=== PATIENT | male | born 1955 | race Caucasian/White ===

== ENCOUNTER → 2021-03-31 | Day surgery (SDC) | payer BC ==
[2021-03-30 08:41] LABS: BASOPHILS % 0.4 % (0.0-1.0); EOSINOPHILS # (AUTO) 0.2 (0.0-0.4); EOSINOPHILS % 3.2 % (0.0-6.0); HEMATOCRIT 42.4 % (38.2-49.6); HEMOGLOBIN 13.2 g/dL (14.0-18.0); LYMPHOCYTES # (AUTO) 1.8 (1.0-3.2); MEAN CORPUSCULAR HEMOGLOBIN 27.9 pg (28-32); MEAN CORPUSCULAR HGB CONC 31.1 g/dL (31-35); MEAN CORPUSCULAR VOLUME 89.6 fL (81-99); MONOCYTES # (AUTO) 0.5 (0.2-0.8); MONOCYTES % 7.7 % (4.4-11.3); NEUTROPHILS # (AUTO) 4.2 (2.1-6.9); NEUTROPHILS % 62.3 % (38.7-80.0); PLATELET COUNT 208 x10e3/uL (140-360); RED BLOOD COUNT 4.73 x10e6/uL (4.3-5.7); RED CELL DISTRIBUTION WIDTH 13.4 % (11.7-14.4)
[2021-03-30 15:01] LABS: ANION GAP 15.9 mmol/L (8-16); CALCIUM 9.7 mg/dL (8.4-10.2); CREATININE, SERUM 0.92 mg/dL (0.72-1.25); POTASSIUM 3.9 mmol/L (3.5-5.1)
[~2021-03-31] MED LIST: ACETAMINOPHEN/CODEINE 300MG - 30MG TAB ONE; ASPIRIN325 MG PO; ATENOLOL PO; BETAMETHASONE DISODIUM PHOS 6 MG/ML VIAL ONE; BETAPROSTATE PO; BUPIVACAINE HCL 0.5% INJ 30 ML VIAL INJ ONE; CITRUCEL500 MG PO; CRESTOR10 MG PO; DULCOLAX5 MG PO; FENTANYL CITRATE/PF 100MCG/2 ML INJ ONE; FIBERCON625 MG PO; LIDOCAINE HCL 1% LOCAL INJ 20 ML VIAL ONE; LOSARTAN-HCTZ1 EACH PO; MULTIVITAMIN PO; MUPIROCIN 2% OINT 22 GM TUBE ONE; PROBIOTIC & AC1 EACH PO; SODIUM CHLORIDE 0.9% 50ML 100 ML ONE; SUBOXONE 4 MG-1 EACH SL; TOBRADEX ST EYE5 ML OT; TYLENOL PM PO; VITAMIN C500 MG PO; VITAMIN D-40400 UNIT PO; Z QUIL PO
[2021-03-31 10:00] VITALS: BP 139/86
== END | disposition home or self-care (01) ==
LOC: OR 05:50
PROVIDERS: ATTEND Podiatrist Foot Surgery
DX: M20.12 Hallux valgus (acquired), left foot (principal); M20.42 Other hammer toe(s) (acquired), left foot; M21.622 Bunionette of left foot; M20.5X2 Other deformities of toe(s) (acquired), left foot; I10 Essential (primary) hypertension; I48.91 Unspecified atrial fibrillation; Z88.6 Allergy status to analgesic agent; Z01.810 Encounter for preprocedural cardiovascular examination; Z01.812 Encounter for preprocedural laboratory examination; Z01.818 Encounter for other preprocedural examination; Z20.822 Contact with and (suspected) exposure to COVID-19
CPT/HCPCS: 28110; 28285 ×2; 28296; 36415; 71046; 73620; 80048; 85025; 88305; 88311; 93005; C1713 ×2; J0690; J0720; J2001; J3010; U0002

== ENCOUNTER 2021-05-05 09:00 | Observation (INO) | payer BC ==
[2021-05-01 08:58] LABS: BASOPHILS % 0.5 % (0.0-1.0); EOSINOPHILS # (AUTO) 0.2 (0.0-0.4); HEMATOCRIT 40.7 % (38.2-49.6); HEMOGLOBIN 12.8 g/dL (14.0-18.0); LYMPHOCYTES # (AUTO) 1.9 (1.0-3.2); LYMPHOCYTES % 30.6 % (18.0-39.1); MEAN CORPUSCULAR HEMOGLOBIN 28.3 pg (28-32); MEAN CORPUSCULAR HGB CONC 31.4 g/dL (31-35); MONOCYTES # (AUTO) 0.6 (0.2-0.8); MONOCYTES % 9.6 % (4.4-11.3); NEUTROPHILS # (AUTO) 3.3 (2.1-6.9); NEUTROPHILS % 54.8 % (38.7-80.0); PLATELET COUNT 193 x10e3/uL (140-360); RED BLOOD COUNT 4.52 x10e6/uL (4.3-5.7); RED CELL DISTRIBUTION WIDTH 13.3 % (11.7-14.4)
[2021-05-01 09:19] LABS: ANION GAP 16.9 mmol/L (8-16); CALCIUM 9.2 mg/dL (8.4-10.2); CREATININE, SERUM 0.85 mg/dL (0.72-1.25); POTASSIUM 3.9 mmol/L (3.5-5.1)
[~2021-05-05] VITALS: Ht 185.4 cm; Wt 108.4 kg
[~2021-05-05 09:00] MED LIST changes: -ACETAMINOPHEN/CODEINE 300MG - 30MG TAB ONE; -BETAMETHASONE DISODIUM PHOS 6 MG/ML VIAL ONE; -BUPIVACAINE HCL 0.5% INJ 30 ML VIAL INJ ONE; +CELECOXIB 200 MG CAP ONE; +DEXAMETHASONE SOD PHOS 10 MG/1 ML VIAL ONE; -FENTANYL CITRATE/PF 100MCG/2 ML INJ ONE; +GABAPENTIN 300 MG CAP ONE; -LIDOCAINE HCL 1% LOCAL INJ 20 ML VIAL ONE; -MUPIROCIN 2% OINT 22 GM TUBE ONE; +ROPIVACAINE 246.25 MG, EPINEPHRINE HCL 1:1000 1ML 0.5 MG, CLONIDINE HCL 0.08 MG, KETORO... INJ ONE; +SODIUM CHLORIDE 0.9% 500ML 500 ML ONE; +TRANEXAMIC ACID 1,000 MG/10 ML ML ONE; +Vancomycin IV 1,000 MG ONE
[2021-05-05] MEDS ORDERED: DIPHENHYDRAMINE HCL INJ 50 MG/ML VIAL IV PRN (10:15)
[2021-05-05] MEDS ORDERED: SODIUM CHLORIDE 0.9% 1000ML 1,000 ML IV SCH (10:15)
[2021-05-05] MEDS ORDERED: ONDANSETRON HCL INJ 2MG/ML 2ML 2 MG/ML VIAL IV PRN (10:15)
[2021-05-05] MEDS ORDERED: HYDROCODONE/APAP 5MG-325MG TAB PO PRN (10:15)
[2021-05-05] MEDS ORDERED: ZOLPIDEM TARTRATE 5 MG TAB PO PRN (10:15)
[2021-05-05] MEDS ORDERED: ACETAMINOPHEN 650 MG SUPP PR PRN (10:15)
[2021-05-05] MEDS ORDERED: DOCUSATE SODIUM 100 MG CAP PO PRN (10:15)
[2021-05-05] MEDS ORDERED: KETOROLAC TROMETHAMINE 30 MG/ML VIAL IV PRN (10:15)
[2021-05-05] MEDS ORDERED: HYDROCODONE/APAP 7.5MG-325MG 1 EA TAB PO PRN (10:15)
[2021-05-05] MEDS ORDERED: FENTANYL CITRATE/PF 100MCG/2 ML INJ ONE (10:38)
[2021-05-05] MEDS ORDERED: HYDROMORPHONE 1MG/1ML INJ ONE ×2 (10:46→10:59)
[2021-05-05] MEDS ORDERED: ONDANSETRON HCL INJ 2MG/ML 2ML 2 MG/ML VIAL ONE ×2 (10:50→14:00)
[2021-05-05] MEDS ORDERED: MEPERIDINE HCL INJ 25 MG/ML VIAL ONE (11:03)
[2021-05-05 11:45] VITALS: BP 125/67
[2021-05-05 11:52] VITALS: BP 124/78
[2021-05-05] MEDS ORDERED: LIDOCAINE 2%/ EPINEPHRINE 20ML MDV ONE (13:32)
[2021-05-05] MEDS ORDERED: ROPIVACAINE 0.5% 5 MG/ML 30 ML SDV ONE (13:32)
[2021-05-05] MEDS ORDERED: LIDOCAINE HCL 2% LOCAL INJ 5 ML SDV VIAL INJ ONE (14:00)
[2021-05-05] MEDS ORDERED: POVIDONE IODINE 0.05% 0.05 % ML PO ONE (14:00)
[2021-05-05] MEDS ORDERED: KETOROLAC TROMETHAMINE 30 MG/ML VIAL ONE (14:00)
[2021-05-05] MEDS ORDERED: PROPOFOL IV EMULSION 10 MG/ML 20 ML VIAL ONE (14:00)
[2021-05-05] MEDS ORDERED: SEVOFLURANE INHAL SOLN 250 ML PEN BTL ONE (14:00)
[2021-05-05 15:37] VITALS: BP 110/72
[2021-05-05] MEDS ORDERED: Cefazolin 1 GM in SODIUM CHLORIDE 0.9% 50ML 50 ML IV SCH (16:00)
[2021-05-05] MEDS ORDERED: ASPIRIN 325 MG TAB PO SCH (17:00)
[2021-05-05] MEDS ORDERED: CELECOXIB 200 MG CAP PO SCH (17:00)
[2021-05-06] MEDS ORDERED: ACETAMINOPHEN 1000 MG/100 ML IV PRN (10:15)
== END 2021-05-05 18:23 | disposition home or self-care (01) ==
LOC: OR 09:00 → PACU V 10:05 → MED/SURG 11:39
PROVIDERS: ADMIT Specialist; ATTEND Specialist
DX: M17.32 Unilateral post-traumatic osteoarthritis, left knee (principal); Z20.822 Contact with and (suspected) exposure to COVID-19; Z01.818 Encounter for other preprocedural examination; I48.91 Unspecified atrial fibrillation; I11.9 Hypertensive heart disease without heart failure
CPT/HCPCS: 20680; 27447; 36415; 73560; 80048; 85025; 86850; 86900; 97110; 97116; 97161; 97530; C1713; G0378; J0171; J0690; J1100; J1170; J1885; J2001; J2175; J2405; J2704; J2795; J3010; J3370; J7030; J7040; U0002; 86920